=== PATIENT | male | born 1945 | race Caucasian/White ===

== ENCOUNTER 2016-11-17 13:35 | Emergency (ER) | payer BC ==
[2016-11-17 14:20] VITALS: BP 125/60
--- NOTE | 2016-11-17 14:49 | UC ---
Neck Pain HPI - HPI Summary HPI Summary: 71 yo male with neck pain x 3-4 days onset initially felt like a routine stiff neck got worse decreased ROM primarily right trapezius - History of Current Complaint Chief Complaint: UCBackPain Stated Complaint: BP CONCERN, NECK PAIN Time Seen by Provider: 11/17/16 14:39 Hx Obtained From: Patient Timing: Constant Onset/Duration: Gradual Onset, Lasting Days Severity: Moderate Pain Intensity: 4 - was worse yesterday Pain Scale Used: 0-10 Numeric Location: Discrete At: - right trapezius Character: Dull, Aching Aggravating Factors: Movement Alleviating Factors: Position Associated Signs & Symptoms: Positive: Negative - Allergies/Home Medications Allergies/Adverse Reactions: Allergies Allergy/AdvReac Type Severity Reaction Status Date / Time BEES Allergy ANAPHYLACTI Uncoded 11/17/16 14:15 C Home Medications: Home Medications Ducolax 11/17/16 [History] PMH/Surg Hx/FS Hx/Imm Hx Previously Healthy: Yes Endocrine History: Hyperthyroidism Psychological History: Anxiety, Depression Cancer History: Prostate Cancer - Surgical History Surgical History: Yes Surgery Procedure, Year, and Place: 2005-RADICAL PROSTECTOMY, left hand, hernia - Family History Known Family History: Positive: Cardiac Disease, Hypertension Family History: FHx prostate CA - Social History Alcohol Use: Occasionally Alcohol Amount: 1 PER WEEK Substance Use Type: None, Prescribed Smoking Status (MU): Never Smoked Tobacco Have You Smoked in the Last Year: No Review Of Systems Constitutional: Positive: Negative Skin: Positive: Negative ENT: Positive: Negative Respiratory: Positive: Negative Cardiovascular: Positive: Negative Gastrointestinal: Positive: Negative Genitourinary: Positive: Negative Musculoskeletal: Positive: Arthralgia, Myalgia Neurological: Positive: Negative Psychological: Positive: Negative All Other Systems Reviewed And Are Negative: Yes Physical Exam Triage Information Reviewed: Yes Appearance: Well-Appearing, No Pain Distress, Well-Nourished Vital Signs: Initial Vital Signs Temp 98.7 F 11/17/16 14:17 Pulse 68 11/17/16 14:17 Resp 16 11/17/16 14:17 BP 125/60 11/17/16 14:17 Pulse Ox 96 11/17/16 14:17 Vital Signs Reviewed: Yes Eyes: Positive: Conjunctiva Clear ENT: Positive: Hearing grossly normal, TMs normal. Negative: Nasal congestion, Nasal drainage, Tonsillar swelling, Tonsillar exudate, Trismus, Muffled/hoarse voice Dental: Negative: Gross Decay/Caries @, Dental Fracture @ Neck: Positive: No Lymphadenopathy, Other: - no bruits. Negative: Supple, Nontender Respiratory: Positive: Lungs clear, Normal breath sounds, No respiratory distress Cardiovascular: Positive: RRR, No Murmur, Pulses Normal Musculoskeletal: Positive: ROM Intact, No Edema Neurological Exam: Normal Neurological: Positive: Alert Psychological Exam: Normal Skin Exam: Normal Diagnostics - Radiology No standard instances Xray Interpretation: No Acute Changes - DEGENERATIVE DISC DISEASE AND OSTEOARTHRITIS. Radiology Interpretation Completed By: Radiologist Neck Pain Course/Dx - Differential Dx/Diagnosis Provider Diagnoses: acute cervical strain. DDD c-spine. DJD c-spine Discharge - Discharge Plan Condition: Stable Disposition: HOME Prescriptions: Naproxen Sodium [Naproxen Sodium 500 MG TAB] 500 mg PO BID PRN #30 tab PRN Reason: Pain Patient Education Materials: Cervical Sprain (ED), Degenerative Disc Disease ( ED) Referrals: Kumar Delgado MD [Primary Care Provider] - 5 Days Additional Instructions: soft collar when up Images Head: 1 - tender, limited ROM
--- NOTE | 2016-11-17 15:21 | RAD ---
HISTORY: Neck pain, decreased range of motion COMPARISONS: None VIEWS: 5, Frontal, lateral, open-mouth odontoid, and bilateral oblique views of the cervical spine. FINDINGS: The cervical spine is visualized from the skull base through C7-T1. ALIGNMENT: There is straightening of the normal cervical lordosis. VERTEBRAL BODIES: There is diffuse multilevel lateral marginal osteophyte formation. JOINTS: There is diffuse uncovertebral and facet hypertrophy. There is moderate right neuroforaminal narrowing at C3-C4. INTERVERTEBRAL DISCS: There is diffuse loss of intervertebral disc height. SOFT TISSUE: The prevertebral soft tissues are normal. OTHER: The skull base is normal. The lung apices are clear. IMPRESSION: DEGENERATIVE DISC DISEASE AND OSTEOARTHRITIS.
== END 2016-11-17 15:55 | disposition home or self-care (01) ==
LOC: UCEAST 13:35
DX: S16.1XXA Strain of muscle, fascia and tendon at neck level, initial encounter (principal); E03.9 Hypothyroidism, unspecified; X58.XXXA Exposure to other specified factors, initial encounter; Y92.9 Unspecified place or not applicable; M50.30 Other cervical disc degeneration, unspecified cervical region
CPT/HCPCS: 72050; 99213; G0463

== ENCOUNTER 2017-03-23 09:25 | Emergency (ER) | payer BC ==
[2017-03-23 09:46] VITALS: BP 103/59
--- NOTE | 2017-03-23 10:41 | UC ---
Back Pain HPI - HPI Summary HPI Summary: Pt presents with right sided lower back/hip pain that has been becoming more constant over the last 3 days. He tells me that he has a history of lumbar spinal stenosis and herniated disks that he manages with physical therapy. 4-5 days ago he was lifting heavy boxes of firewood into the basement - does not recall a specific injury, but the next day his right lower back was "tight" when trying to complete his workout. Throughout the day is fine, but at night when he is resting the area will feel like it is spasming and is painful. Currently he is in no pain. Denies fever, chills, SOB, chest pain, abdominal pain, n/v/d/c, radiation of pain, numbness, tingling, or loss of bowel/bladder function. - History of Current Complaint Chief Complaint: UCBackPain Stated Complaint: LOWER BACK PAIN Time Seen by Provider: 03/23/17 10:36 Hx Obtained From: Patient Onset/Duration: Gradual Onset Timing: Intermittent Severity Initially: Mild Severity Currently: Mild Pain Intensity: 1 Pain Scale Used: 0-10 Numeric Character: Aching, Spasmodic, Stiffness Aggravating Factor(s): Bending - Allergies/Home Medications Allergies/Adverse Reactions: Allergies Allergy/AdvReac Type Severity Reaction Status Date / Time BEES Allergy ANAPHYLACTI Uncoded 03/23/17 09:46 C PMH/Surg Hx/FS Hx/Imm Hx Previously Healthy: Yes Endocrine History: Hypothyroidism Cardiovascular History: Hypertension - Surgical History Surgical History: Yes Surgery Procedure, Year, and Place: 2005-RADICAL PROSTECTOMY, left hand, hernia - Family History Known Family History: Positive: Cardiac Disease, Hypertension Family History: FHx prostate CA - Social History Occupation: Retired Lives: With Family Alcohol Use: Occasionally Alcohol Amount: 1 PER WEEK Substance Use Type: None, Prescribed Smoking Status (MU): Never Smoked Tobacco Have You Smoked in the Last Year: No - Immunization History Most Recent Tetanus Shot: unknown Review of Systems Constitutional: Negative Skin: Negative Respiratory: Negative Cardiovascular: Negative Gastrointestinal: Negative Genitourinary: Negative Neurovascular: Negative Musculoskeletal: Other: - Right lower back pain Neurological: Negative Psychological: Negative All Other Systems Reviewed And Are Negative: Yes Physical Exam Triage Information Reviewed: Yes Appearance: Well-Appearing, No Pain Distress, Well-Nourished Vital Signs: Initial Vital Signs Temp 97.9 F 03/23/17 09:40 Pulse 67 03/23/17 09:40 Resp 20 03/23/17 09:40 BP 103/59 03/23/17 09:40 Pulse Ox 96 03/23/17 09:40 Vital Signs Reviewed: Yes Neck: Positive: Supple, Nontender, No Lymphadenopathy Respiratory: Positive: Lungs clear, Normal breath sounds, No respiratory distress Cardiovascular: Positive: RRR, No Murmur, Pulses Normal, Brisk Capillary Refill Musculoskeletal: Positive: Strength Intact - B/L LEs, ROM Intact - B/L LEs, No Edema, Other: - Positive EDNA on right for groin pain. Mildly TTP over right lumbar paraspinal muscles. Positive SLR on right. Neurological: Positive: Alert, Other: - Sensations intact L3-S1 b/l LEs Psychological: Positive: Age Appropriate Behavior Skin: Negative: rashes, significant lesion(s) Back Pain Course/Dx - Course Course Of Treatment: Lumbar/Hip XR:1. GRADE 1 ANTERIOR SPONDYLOLISTHESIS AT THE L4-L5 LEVEL, NEW FROM THE PRIOR STUDY. 2. MODERATE DIFFUSE DEGENERATIVE DISC DISEASE. IMPRESSION: 1. MILD TO MODERATE BILATERAL OSTEOARTHRITIC CHANGE IN THE HIPS. 2. POST SURGICAL CHANGES. Suspect muscle strain vs arthritis. Advised to take ibuprofen 400-600mg every 6-8 hours as needed and follow up with his pain manamgement MD next week as scheduled. - Differential Dx/Diagnosis Provider Diagnoses: right hip arthritis. Lower back muscle strain Discharge - Discharge Plan Condition: Stable Disposition: HOME Patient Education Materials: Low Back Strain (ED) Referrals: Kumar Delgado MD [Primary Care Provider] - Additional Instructions: If you develop a fever, shortness of breath, chest pain, new or worsening symptoms - please call your PCP or go to the ED. 1) May take ibuprofen 600mg every 6-8 hours as needed 2) Follow up with Dr. Flood next week for further treatment of your pain
--- NOTE | 2017-03-23 11:43 | RAD ---
INDICATION: Right hip pain. COMPARISON: There are no prior studies available for comparison. TECHNIQUE: An AP view of the pelvis and frontal and lateral views of the right hip were obtained. FINDINGS: The bones are in normal alignment. No fracture is seen. There is mild to moderate bilateral osteoarthritic change in the hips. There are multiple surgical clips which project over the pelvis consistent with the patient's history of a prostatectomy. IMPRESSION: 1. MILD TO MODERATE BILATERAL OSTEOARTHRITIC CHANGE IN THE HIPS. 2. POST SURGICAL CHANGES.
--- NOTE | 2017-03-23 11:46 | RAD ---
INDICATION: Right hip pain. COMPARISON: Comparison is made with a prior study from November 24, 2011. TECHNIQUE: 5 views of the lumbar spine were obtained including lateral, oblique, AP and a coned-down lateral view of the lumbar sacral junction. FINDINGS: There is a mild lumbar scoliosis convex toward the right side. There is mild grade 1 anterior listhesis at the L4-L5 level with approximately 9 mm. No fracture is seen. There is moderate diffuse degenerative disc disease throughout the lumbar spine. IMPRESSION: 1. GRADE 1 ANTERIOR SPONDYLOLISTHESIS AT THE L4-L5 LEVEL, NEW FROM THE PRIOR STUDY. 2. MODERATE DIFFUSE DEGENERATIVE DISC DISEASE.
== END 2017-03-23 12:30 | disposition home or self-care (01) ==
LOC: UCEAST 09:25
DX: S39.012A Strain of muscle, fascia and tendon of lower back, initial encounter (principal); X50.0XXA Overexertion from strenuous movement or load, initial encounter; Y93.89 Activity, other specified; Y92.9 Unspecified place or not applicable; M16.11 Unilateral primary osteoarthritis, right hip; M43.16 Spondylolisthesis, lumbar region; M51.36 Other intervertebral disc degeneration, lumbar region; E03.9 Hypothyroidism, unspecified; I10 Essential (primary) hypertension; Z91.030 Bee allergy status
CPT/HCPCS: 72110; 99212; G0463